=== PATIENT | female | born 1965 | race Hispanic/Latino ===

== ENCOUNTER 2017-12-17 19:12 | Emergency (ER) | payer BC ==
[2017-12-17] MEDS ORDERED: Sodium Chloride 0.9% 1,000 ML IV STA (20:52)
[2017-12-17 21:41] LABS: BASO # 0.1 K/uL (0.0-0.2); BASO % 0.6 % (0.0-2.0); EOS # 0.2 K/uL (0.0-0.7); EOS % 2.4 % (0.0-4.0); HEMOGLOBIN 15.7 g/dL (12.0-16.0); LYMPH # 2.1 K/uL (1.0-4.3); LYMPH % 26.9 % (20.0-40.0); MEAN CORPUSCULAR HEMOGLOBIN 28.5 pg (27.0-31.0); MEAN CORPUSCULAR HGB CONC 33.1 g/dL (33.0-37.0); MEAN PLATELET VOLUME 8.6 fl (7.2-11.7); MONO # 0.8 K/uL (0.0-0.8); MONO % 10.2 % (0.0-10.0); NEUT # 4.7 K/uL (1.8-7.0); NEUT % 59.9 % (50.0-75.0); NRBC % 0.1 % (0.0-0.0); RBC 5.51 Mil/uL (3.80-5.20); RED CELL DISTRIBUTION WIDTH 15.4 % (11.5-14.5); WHITE BLOOD COUNT 7.9 K/uL (4.8-10.8)
[2017-12-17 21:50] LABS: ALB/GLOB RATIO 1.2 (1.0-2.1); ALBUMIN 4.4 g/dL (3.5-5.0); ALT/SGPT 33 U/L (9-52); AST/SGOT 36 U/L (14-36); BLOOD UREA NITROGEN 16 mg/dl (7-17); CALCIUM 9.2 mg/dL (8.4-10.2); GFR NON-AFRICAN AMERICAN > 60
--- NOTE | 2017-12-17 22:03 | ED PDOC ---
HPI: SOB/CHF/COPD Time Seen by Provider: 12/17/17 20:16 Chief Complaint (Nursing): Shortness Of Breath History Per: Patient Additional Complaint(s): Pt. states on Thursday she developed fatigue and 3 days ago she developed cough, nasal congestion, sore throat. Pt. states she's also developed SOB without chest pain. Pt. states she believes SOB may be due to her asthma but she has yet to use xopenex. Pt.s tates her mother also has same symptoms and is currently being treated with a Z-pack. Denies hemoptysis, fever, N/V/D, rash, recent travel, palpitations, hx of DVT or PE, leg pain. Past Medical History Reviewed: Historical Data, Nursing Documentation, Vital Signs Vital Signs: Last Vital Signs Temp 98.1 F 12/17/17 19:24 Pulse 71 12/17/17 23:49 Resp 17 12/17/17 22:07 BP 114/59 L 12/17/17 19:24 Pulse Ox 100 12/17/17 23:49 - Medical History PMH: Asthma Denies: Pulmonary Embolism - Surgical History Surgical History: Appendectomy, Cholecystectomy Other surgeries: EVLT for saphenous vein clot in legs - Family History Family History: States: No Known Family Hx - Home Medications Home Medications: Ambulatory Orders Medication Instructions Recorded Polyethylene Glycol 3350 [Miralax] 17 gm PO DAILY 4 Days ml 03/01/15 Azithromycin [Zithromax] 250 mg PO DAILY #6 tab 12/17/17 Benzonatate [Tessalon Perle] 100 mg PO Q8 PRN #15 capsule 12/17/17 - Allergies Allergies/Adverse Reactions: Allergies Allergy/AdvReac Type Severity Reaction Status Date / Time ciprofloxacin [From Cipro] Allergy RASH Verified 12/17/17 19:30 Iodinated Contrast- Oral and Allergy RASH Verified 12/17/17 19:30 IV Dye peanut Allergy RASH Verified 12/17/17 19:30 Penicillins Allergy RASH Verified 12/17/17 19:30 shellfish derived Allergy RASH Verified 12/17/17 19:30 Sulfa (Sulfonamide Allergy RASH Verified 12/17/17 19:30 Antibiotics) Wells Criteria for PE - Wells Criteria for Pulmonary Embolism Clinical Signs and Symptoms of DVT: No P.E is #1 Diagnosis, or Equally Likely: No Heart Rate >100: No Immobilization at least 3 days;Surgery previous 4 weeks: No Previous, objectively diagnosed PE or DVT: No Hemoptysis: No Malignancy w/treatment within 6 months, or palliative: No Total Score: 0 Review of Systems ROS Statement: Except As Marked, All Systems Reviewed And Found Negative Constitutional: Positive for: Weakness ENT: Positive for: Nose Congestion Respiratory: Positive for: Cough, Shortness of Breath Physical Exam - Physical Exam Appears: Positive for: Well, Non-toxic, No Acute Distress (speaking in full sentences) Skin: Positive for: Normal Color, Warm. Negative for: Rash Eye Exam: Positive for: EOMI, Normal appearance, PERRL ENT: Positive for: TM Is/Are (non-erythemaotus, non-bulging b/l), Nasal Congestion. Negative for: Pharyngeal Erythema, Tonsillar Exudate, Tonsillar Swelling Cardiovascular/Chest: Positive for: Regular Rate, Rhythm. Negative for: Tachycardia Respiratory: Positive for: Normal Breath Sounds. Negative for: Respiratory Distress Gastrointestinal/Abdominal: Positive for: Normal Exam, Soft. Negative for: Tenderness Back: Positive for: Normal Inspection Extremity: Positive for: Normal ROM Neurologic/Psych: Positive for: Alert, Oriented (x3). Negative for: Aphasia, Facial Droop - Laboratory Results Result Diagrams: 12/17/17 21:30 12/17/17 21:30 - ECG ECG: Positive for: Interpreted By Me ECG Rhythm: Positive for: Sinus Rhythm. Negative for: ST/T Changes Rate: 71 O2 Sat by Pulse Oximetry: 100 - Radiology X-Ray: Interpreted by Me (CXR) X-Ray Interpretation: No Acute Disease - Progress ED Course And Treament: Labs, EKG, IV NS bolus x 1 ordered. Upon review of previous medical records, it indicates that pt. has a documented hx of SLE. As per pt. she was tested for SLE and her blood work came out positive but she was eventually informed that it was a false positive and was never placed on any SLE treatment. Disposition - Clinical Impression Clinical Impression: URI (upper respiratory infection) - Patient ED Disposition Is Patient to be Admitted: No - Disposition Referrals: Arnaldo Brice [Outside] Disposition: Routine/Home Disposition Time: 23:20 Condition: IMPROVED Additional Instructions: TIFFANY RADFORD, thank you for letting us take care of you today. Your provider was Kumar Sow MD and you were treated for SOB. The emergency medical care you received today was directed at your acute symptoms. If you were prescribed any medication, please fill it and take as directed. It may take several days for your symptoms to resolve. Return to the Emergency Department if your symptoms worsen, do not improve, or if you have any other problems. Please contact your doctor or call one of the physicians/clinics you have been referred to that are listed on the Patient Visit Information form that is included in your discharge packet. Bring any paperwork you were given at discharge with you along with any medications you are taking to your follow up visit. Our treatment cannot replace ongoing medical care by a primary care provider outside of the emergency department. Thank you for allowing the [facility] team to be part of your care today. If you had an X-Ray or CT scan: A Radiologist will review the ED reading if any change in treatment is needed we will contact you. If you had a blood, urine, or wound culture: It will take several days for the results, if any change in treatment is needed we will contact you. If you had an STI test: It will take 48 hours for the results. Please call after 1 week if you have not heard back. Prescriptions: Azithromycin [Zithromax] 250 mg PO DAILY #6 tab Benzonatate [Tessalon Perle] 100 mg PO Q8 PRN #15 capsule PRN Reason: Cough Instructions: Viral Upper Respiratory Infection, Adult (DC) Forms: [employer] (Polish) Print Language: FRENCH
[2017-12-17 22:09] VITALS: RESP 17
[2017-12-18 00:41] VITALS: BP 135/71; PULSE 75; TEMP 98.5; O2SAT 98
--- NOTE | 2017-12-18 08:29 | CARD ---
APPROVED REPORT Date of service: 12/17/2017 <Conclusion> Normal sinus rhythm with sinus arrhythmia Nonspecific ST abnormality Abnormal ECG
--- NOTE | 2017-12-18 11:28 | RAD ---
HISTORY: cough COMPARISON: None available. TECHNIQUE: Chest PA and lateral FINDINGS: Examination limited by habitus. LUNGS: No focal consolidation. Please note that chest x-ray has limited sensitivity for the detection of pulmonary masses. PLEURA: No significant pleural effusion identified. No definite pneumothorax . CARDIOVASCULAR: Heart size appears within normal limits. OSSEOUS STRUCTURES: Degenerative changes of the spine. VISUALIZED UPPER ABDOMEN: Unremarkable. OTHER FINDINGS: None. IMPRESSION: No focal consolidation identified.
== END 2017-12-18 00:42 | disposition home or self-care (01) ==
LOC: H.ER 19:12
DX: J44.9 Chronic obstructive pulmonary disease, unspecified (principal); Z88.0 Allergy status to penicillin
CPT/HCPCS: 71046; 80053; 81025; 84484; 85025; 85378; 87070; 87430; 87804; 93005; 99284; J7030

== ENCOUNTER 2018-06-30 18:05 | Emergency (ER) | payer BC ==
[2018-06-30] MEDS ORDERED: Albuterol-Ipratrop 3 mg / 0.5 (3 ml) UD INH STA (19:15)
[2018-06-30] MEDS ORDERED: Albuterol-Ipratrop 3 mg / 0.5 (3 ml) UD ONE (19:57)
--- NOTE | 2018-06-30 20:28 | ED PDOC ---
HPI: Chest Pain Time Seen by Provider: 06/30/18 19:05 Chief Complaint (Nursing): Chest Pain Chief Complaint (Provider): Chest Pain History Per: Patient History/Exam Limitations: no limitations Onset/Duration Of Symptoms: Days (x 1) Current Symptoms Are (Timing): Still Present Quality: "Pain" Additional Complaint(s): 52 year old female with a history of superficial blood clots in her legs presents to the ED for evaluation of chest tightness for one day and two weeks of generalized body aches, subjective fever, chills, dry cough and shortness of breath. She reports no radiation to arms or jaw. Patient took Xopenex this morning with no relief. PMD: Dr. Crespo Past Medical History Reviewed: Historical Data, Nursing Documentation, Vital Signs Vital Signs: Last Vital Signs Temp 97.6 F 06/30/18 18:11 Pulse 70 06/30/18 18:11 Resp 16 06/30/18 18:11 BP 126/77 06/30/18 18:11 Pulse Ox 100 06/30/18 18:11 - Medical History PMH: Asthma Denies: Pulmonary Embolism, Chronic Kidney Disease - Surgical History Surgical History: Appendectomy, Cholecystectomy - Family History Family History: States: Unknown Family Hx - Home Medications Home Medications: Ambulatory Orders Medication Instructions Recorded Polyethylene Glycol 3350 [Miralax] 17 gm PO DAILY 4 Days ml 03/01/15 Azithromycin [Zithromax] 250 mg PO DAILY #6 tab 12/17/17 Benzonatate [Tessalon Perle] 100 mg PO Q8 PRN #15 capsule 12/17/17 - Allergies Allergies/Adverse Reactions: Allergies Allergy/AdvReac Type Severity Reaction Status Date / Time ciprofloxacin [From Cipro] Allergy RASH Verified 06/30/18 18:12 Iodinated Contrast- Oral and Allergy RASH Verified 06/30/18 18:12 IV Dye peanut Allergy RASH Verified 06/30/18 18:12 Penicillins Allergy RASH Verified 06/30/18 18:12 shellfish derived Allergy RASH Verified 06/30/18 18:12 Sulfa (Sulfonamide Allergy RASH Verified 06/30/18 18:12 Antibiotics) Review of Systems ROS Statement: Except As Marked, All Systems Reviewed And Found Negative Constitutional: Positive for: Fever, Chills, Other (body aches) Cardiovascular: Positive for: Chest Pain Respiratory: Positive for: Cough, Shortness of Breath. Negative for: Sputum Physical Exam - Reviewed Nursing Documentation Reviewed: Yes Vital Signs Reviewed: Yes - Physical Exam Appears: Positive for: Non-toxic, No Acute Distress Head Exam: Positive for: ATRAUMATIC, NORMAL INSPECTION, NORMOCEPHALIC Skin: Positive for: Normal Color, Warm, Dry Eye Exam: Positive for: EOMI, Normal appearance, PERRL ENT: Positive for: TM Is/Are (sligthly obscured with cerumen; no erythema visualized), Pharyngeal Erythema (injected with mild erythema). Negative for: Tonsillar Exudate, Tonsillar Swelling Neck: Positive for: Normal, Painless ROM, Supple Cardiovascular/Chest: Positive for: Regular Rate, Rhythm. Negative for: Murmur Respiratory: Positive for: Normal Breath Sounds, Wheezing (slight wheeze bilaterally). Negative for: Respiratory Distress Gastrointestinal/Abdominal: Positive for: Normal Exam, Soft Back: Positive for: Normal Inspection. Negative for: L CVA Tenderness, R CVA Tenderness Extremity: Positive for: Normal ROM. Negative for: Deformity Neurological/Psych: Positive for: Awake, Alert, Normal Tone, Oriented. Negative for: Motor/Sensory Deficits - Laboratory Results Result Diagrams: 06/30/18 20:20 06/30/18 20:20 - ECG O2 Sat by Pulse Oximetry: 100 (RA) Pulse Ox Interpretation: Normal Medical Decision Making Medical Decision Makin:14 MDM: viral syndrome vs cardiac etiology of chest tightness Toradol, Solu-medrol and one duoneb Labs including influenza swab -------- --------- Scribe Attestation: Documented by Trina Granados, acting as a scribe for Sol Alvarez MD. Provider Scribe Attestation: All medical record entries made by the Scribe were at my direction and personally dictated by me. I have reviewed the chart and agree that the record accurately reflects my personal performance of the history, physical exam, medical decision making, and the department course for this patient. I have also personally directed, reviewed, and agree with the discharge instructions and disposition. Disposition - Clinical Impression Clinical Impression: Atypical chest pain, Viral syndrome - Disposition Disposition: Routine/Home Disposition Time: 22:17 Condition: IMPROVED Additional Instructions: Follow up with mobile ui developer for epigastric discomfort. Follow up with primary medical doctor. Return to the emergency department if symptoms worsen or if new symptoms develop. Instructions: Viral Syndrome (DC) Forms: [employer] (Bermudian), [facility] ED School/Work Excuse Print Language: ALBANIAN
[2018-06-30 21:21] LABS: BASO # 0.1 K/uL (0.0-0.2); BASO % 0.6 % (0.0-2.0); EOS # 0.2 K/uL (0.0-0.7); HEMOGLOBIN 14.5 g/dL (12.0-16.0); LYMPH # 2.1 K/uL (1.0-4.3); LYMPH % 23.5 % (20.0-40.0); MEAN CELL VOLUME 86.4 fl (81.0-99.0); MEAN CORPUSCULAR HEMOGLOBIN 28.6 pg (27.0-31.0); MEAN PLATELET VOLUME 8.7 fl (7.2-11.7); MONO # 0.5 K/uL (0.0-0.8); MONO % 5.8 % (0.0-10.0); NEUT # 6.2 K/uL (1.8-7.0); NEUT % 68.1 % (50.0-75.0); RBC 5.09 Mil/uL (3.80-5.20); WHITE BLOOD COUNT 9.1 K/uL (4.8-10.8)
[2018-06-30 21:40] LABS: BLOOD UREA NITROGEN 22 mg/dl (7-17); CALCIUM 9.6 mg/dL (8.4-10.2); GFR NON-AFRICAN AMERICAN > 60
[2018-07-01 02:52] VITALS: BP 138/68; PULSE 68; RESP 18; TEMP 97.8
[2018-07-01 05:38] VITALS: O2SAT 100
--- NOTE | 2018-07-01 09:06 | CARD ---
APPROVED REPORT Date of service: 06/30/2018 EKG Measurement Heart [id number] <Conclusion> Normal sinus rhythm Normal ECG
--- NOTE | 2018-07-01 10:33 | RAD ---
Date of service: 06/30/2018 HISTORY: Cough. COMPARISON: 12/17/2017. TECHNIQUE: Chest PA and lateral FINDINGS: LUNGS: No active pulmonary disease. PLEURA: No significant pleural effusion identified. No pneumothorax apparent. CARDIOVASCULAR: No aortic atherosclerotic calcification present. No radiographic findings to suggest acute or significant cardiovascular disease. OSSEOUS STRUCTURES: No significant abnormalities. VISUALIZED UPPER ABDOMEN: Normal. OTHER FINDINGS: None. IMPRESSION: No active disease. No significant interval change compared to the prior examination(s).
== END 2018-06-30 22:45 | disposition home or self-care (01) ==
LOC: H.ER 18:05
DX: R07.89 Other chest pain (principal); B34.9 Viral infection, unspecified; R06.2 Wheezing; J45.909 Unspecified asthma, uncomplicated; Z88.0 Allergy status to penicillin; Z88.1 Allergy status to other antibiotic agents; Z88.2 Allergy status to sulfonamides; Z88.8 Allergy status to other drugs, medicaments and biological substances
CPT/HCPCS: 71046; 80048; 84484; 85025; 87070; 87430; 87804; 93005; 96374; 99284; J2930